=== PATIENT | female | born 1965 | race Hispanic/Latino ===

== ENCOUNTER 2016-09-10 08:43 | Emergency (ER) | payer SELFPAY ==
[2016-09-10 09:06] VITALS: BP 132/72
--- NOTE | 2016-09-10 10:13 | XRay Report ---
Chest 2 views: Compared to 04/30/14. History: Cough/Rib pain. Findings: Normal cardiomediastinal silhouette. Trachea is midline. No consolidation, pneumothorax or pleural effusion. Impression: No acute cardiopulmonary findings.
[2016-09-10] MEDS ORDERED: TESSALON PERLES PO ONE (11:28)
[2016-09-10] MEDS ORDERED: DUONEB 0.5 MG-3 MG/3 ML SOLN IH ONE (11:28)
--- NOTE | 2016-09-10 11:34 | Emergency Department Report ---
ED General Adult HPI - General Chief complaint: Upper Respiratory Infection Stated complaint: SOB/COUGHING BLOODY MUCUS Time Seen by Provider: 09/10/16 11:03 Source: patient Mode of arrival: Ambulatory Limitations: No Limitations - History of Present Illness Initial comments: PT states she a hx of bronchitis and over 20 years of tobacco abuse. PT states she has had productive cough x 3 weeks. PT states she is bringing up foul tasting yellow mucus. PT states she was sent home from work today. PT states she had one episode of coughing up blood speckled sputum. PT states she works at [employer] and she was told that she can not be coughing around food. PT states she was seen by her charcoal unloader on Thursday and told everything was good with her heart. Complaint: bronchitis Onset/Timin -: Gradual, week(s) Location: chest Consistency: constant Improves with: none Worsens with: other (pt states when she takes a deep breath, she will start to cough ) Associated Symptoms: denies: chest pain, fever/chills, nausea/vomiting - Related Data Previous Rx's Medication Instructions Recorded Last Taken Type Aspirin EC [Aspirin Enteric Coated 325 mg PO QDAY #30 tablet 03/21/14 04/30/14 Rx TAB] Carvedilol [Coreg] 3.125 mg PO BID #60 tablet 03/21/14 04/30/14 Rx Clopidogrel [Plavix] 75 mg PO QDAY #30 tablet 03/21/14 04/30/14 Rx Lisinopril [Zestril TAB] 2.5 mg PO QDAY #30 tablet 03/21/14 04/30/14 Rx Simvastatin 20 mg PO QHS #30 tablet 03/21/14 04/30/14 Rx Albuterol Sulfate [Ventolin HFA] 2 puff IH Q4H PRN #1 hfa.aer.ad 09/10/16 Unknown Rx Azithromycin [Zithromax] 250 mg PO DAILY #6 tablet 09/10/16 Unknown Rx Benzonatate [Tessalon Perles] 100 mg PO Q8HR PRN #12 capsule 09/10/16 Unknown Rx Allergies Allergy/AdvReac Type Severity Reaction Status Date / Time codeine Allergy Rash Verified 09/10/16 08:59 ED Review of Systems ROS: Stated complaint: SOB/COUGHING BLOODY MUCUS Other details as noted in HPI Comment: All other systems reviewed and negative Constitutional: denies: chills, fever ENT: throat pain, congestion Respiratory: cough, wheezing, other (pt states she hears rattling in her chest ) Gastrointestinal: denies: abdominal pain, nausea, vomiting Musculoskeletal: back pain ED Past Medical Hx - Past Medical History Hx Hypertension: Yes Hx Heart Attack/AMI: Yes (admitted for STEMI) Hx Congestive Heart Failure: No Hx Diabetes: No Hx Deep Vein Thrombosis: No Hx Pulmonary Embolism: No Hx Renal Disease: No Hx Kidney Stones: No Hx Psychiatric Treatment: Yes (ANXIETY) Hx Asthma: No Hx COPD: No Hx Tuberculosis: No Hx HIV: No Additional medical history: CAD - Surgical History Hx Coronary Stent: Yes Hx Pacemaker: No Hx Internal Defibrillator: No Additional Surgical History: TUBAL LIGATION - Social History Smoking Status: Former Smoker (over 20 years) Substance Use Type: None - Medications Home Medications: Home Medications Medication Instructions Recorded Confirmed Last Taken Type Aspirin EC [Aspirin Enteric Coated 325 mg PO QDAY #30 tablet 03/21/14 04/30/14 04/30/14 Rx TAB] Carvedilol [Coreg] 3.125 mg PO BID #60 tablet 03/21/14 04/30/14 04/30/14 Rx Clopidogrel [Plavix] 75 mg PO QDAY #30 tablet 03/21/14 04/30/14 04/30/14 Rx Lisinopril [Zestril TAB] 2.5 mg PO QDAY #30 tablet 03/21/14 04/30/14 04/30/14 Rx Simvastatin 20 mg PO QHS #30 tablet 03/21/14 04/30/14 04/30/14 Rx Albuterol Sulfate [Ventolin HFA] 2 puff IH Q4H PRN #1 hfa.aer.ad 09/10/16 Unknown Rx Azithromycin [Zithromax] 250 mg PO DAILY #6 tablet 09/10/16 Unknown Rx Benzonatate [Tessalon Perles] 100 mg PO Q8HR PRN #12 capsule 09/10/16 Unknown Rx ED Physical Exam - General Limitations: No Limitations General appearance: alert, in no apparent distress - Head Head exam: Present: atraumatic, normocephalic, normal inspection, other ( frontal sinus tenderness ) - Eye Eye exam: Present: normal appearance, EOMI. Absent: conjunctival injection - ENT ENT exam: Present: normal exam, normal orophraynx, mucous membranes moist, TM's normal bilaterally, normal external ear exam - Neck Neck exam: Present: normal inspection, full ROM. Absent: lymphadenopathy - Respiratory Respiratory exam: Present: wheezes, decreased breath sounds. Absent: respiratory distress, rhonchi, stridor - Expanded Respiratory Exam Expanded Location: Wheezes: Left, Lower, Decreased Breath Sounds: Right, Lower - Cardiovascular Cardiovascular Exam: Present: regular rate, normal rhythm - GI/Abdominal GI/Abdominal exam: Present: soft. Absent: tenderness - Extremities Exam Extremities exam: Present: normal inspection, full ROM - Back Exam Back exam: Present: normal inspection, full ROM. Absent: tenderness, CVA tenderness (R), CVA tenderness (L) - Neurological Exam Neurological exam: Present: alert, oriented X3, normal gait - Psychiatric Psychiatric exam: Present: normal affect, normal mood - Skin Skin exam: Present: warm, dry, intact, normal color ED Course Vital Signs 09/10/16 09:02 Temperature 98.3 F Pulse Rate 56 L Respiratory 18 Rate Blood Pressure 132/72 O2 Sat by Pulse 98 Oximetry - Reevaluation(s) Reevaluation #1: 09/10/16 11:37 PT aware of XR results. PT aware of plan of care. PT has no questions at this time. Reevaluation #2: 09/10/16 12:50 PT states her cough has decreased. PT's lungs cta at this time. PT aware of dx and treatment plan. PT has no questions at this time. - Pulse Oximetry Interpretation Digit-Finger Initial Pulse Oximetry Readin Actions Taken: none ED Medical Decision Making - Radiology Data Radiology results: report reviewed CXR - NAP - Differential Diagnosis pna, bronchitis, sinusitis, Critical Care Time: No Critical care attestation.: If time is entered above; I have spent that time in minutes in the direct care of this critically ill patient, excluding procedure time. ED Disposition Clinical Impression: Complicated acute bronchitis Frontal sinusitis Qualifiers: Chronicity: acute Recurrence: not specified as recurrent Qualified Code(s): J01.10 - Acute frontal sinusitis, unspecified Disposition: - TO HOME OR SELFCARE Is pt being admited?: No Does the pt Need Aspirin: No Condition: Stable Instructions: Sinusitis (ED), Acute Bronchitis (ED) Additional Instructions: Return to ED if worsening or concerns Prescriptions: Albuterol Sulfate [Ventolin HFA] 2 puff IH Q4H PRN #1 hfa.aer.ad PRN Reason: Shortness Of Breath Azithromycin [Zithromax] 250 mg PO DAILY #6 tablet Benzonatate [Tessalon Perles] 100 mg PO Q8HR PRN #12 capsule PRN Reason: Cough Referrals: [facility] [Outside] - 3-5 Days [facility] [Outside] - 3-5 Days PRIMARY CAREMD [Primary Care Provider] - 3-5 Days EMILY BACA MD [Staff Physician] - 3-5 Days Forms: Work/School Release Form(ED)
== END 2016-09-10 12:58 | disposition home or self-care (01) ==
LOC: ED 08:43
DX: J20.9 Acute bronchitis, unspecified (principal); J01.10 Acute frontal sinusitis, unspecified; I10 Essential (primary) hypertension; I25.2 Old myocardial infarction; Z87.891 Personal history of nicotine dependence
CPT/HCPCS: 71020; 99283

== ENCOUNTER 2017-01-07 13:36 | Inpatient (IN) | payer OTHER ==
[2017-01-07 14:26] LABS: Basophils % (Auto) 1.3 % (0.0-1.8); Eosinophils % (Auto) 1.2 % (0.0-4.3); Hematocrit 42.6 % (30.3-42.9); Hemoglobin 14.1 gm/dl (10.1-14.3); Mean Corpuscular HGB Conc 33 % (30-34); Mean Corpuscular Hemoglobin 31 pg (28-32); Mean Corpuscular Volume 92 fl (79-97); Platelet Count 353 K/mm3 (140-440); Red Blood Count 4.63 M/mm3 (3.65-5.03); Red Cell Distribution Width 13.8 % (13.2-15.2); White Blood Count 14.2 K/mm3 (4.5-11.0)
[2017-01-07 14:35] LABS: INR 0.94 (0.87-1.13); Partial Thromboplastin Time 26.7 Sec. (24.2-36.6)
[2017-01-07 14:38] LABS: Anion Gap 17 mmol/L; BUN/Creatinine Ratio 28; Blood Urea Nitrogen 14 mg/dL (7-17); Calcium 10.3 mg/dL (8.4-10.2); Carbon Dioxide 27 mmol/L (22-30); Chloride 102.5 mmol/L (98-107); Glucose 92 mg/dL (65-100); Potassium 4.8 mmol/L (3.6-5.0); Sodium 142 mmol/L (137-145)
[2017-01-08] MEDS ORDERED: MAGNESIUM SULFATE 2GM/50ML 2 GM/50 ML BAG IV ONE (03:08)
[2017-01-08] MEDS ORDERED: BABY ASPIRIN PO ONE (03:08)
[2017-01-08] MEDS ORDERED: ATROVENT IH ONE ×2 (03:08→04:44)
[2017-01-08] MEDS ORDERED: NITROSTAT SL PRN (03:08)
[2017-01-08] MEDS ORDERED: MORPHINE IV ONE (03:08)
--- NOTE | 2017-01-08 03:10 | Emergency Department Report ---
ED Chest Pain HPI - General Chief Complaint: Chest Pain Stated Complaint: CHEST PAIN Time Seen by Provider: 01/08/17 02:56 Source: patient, RN notes reviewed, old records reviewed Mode of arrival: Ambulatory Limitations: No Limitations - History of Present Illness Initial Comments: This is a 51-year-old female, the patient is previously unknown to this provider. Her dietitian helper is Dr. Roberson The patient has a past medical history of heart disease, stent, STEMI, tobacco use, anxiety Patient is sent to the ER for evaluation of chest pain. The chest pain is central, it radiates to the back, it is associated with shortness of breath. Patient endorses compliance with her medications, there is no leg pain, there is no leg swelling, no recent hospital admissions, no history of DVT or pulmonary in loss, no hematemesis or bright red blood per rectum. In the emergency room, he was found to be wheezing, and is treated empirically with Atrovent, steroids and magnesium. Her EKGs were nonspecific, unchanged from prior, but not morphologically consistent with STEMI. X-ray of the chest was negative, troponin was negative 3. Patient remained hemodynamically stable in the ER. Given her nonspecific EKG changes and chest pain, patient was admitted to the hospital under the hospitalist service, Dr. Mcguire for acute coronary syndrome risk stratification. Wheezing is most likely secondary to undiagnosed emphysema or bronchitis or COPD , albuterol was held secondary to concern for acute coronary syndrome. MD Complaint: chest pain -: Gradual Onset: during rest, during exertion Pain Location: substernal, left chest Pain Radiation: back Severity scale (0 -10): 9 Quality: tightness, aching Consistency: intermittent Improves With: rest Worsens With: movement Context: other (patient reports her chest pain feels like her prior myocardial infarction) Aspirin use within the Past 7 Days: (0) No - Related Data On Oral Contraceptives: No Previous Rx's Medication Instructions Recorded Last Taken Type Aspirin EC [Aspirin Enteric Coated 325 mg PO QDAY #30 tablet 03/21/14 04/30/14 Rx TAB] Carvedilol [Coreg] 3.125 mg PO BID #60 tablet 03/21/14 04/30/14 Rx Clopidogrel [Plavix] 75 mg PO QDAY #30 tablet 03/21/14 04/30/14 Rx Lisinopril [Zestril TAB] 2.5 mg PO QDAY #30 tablet 03/21/14 04/30/14 Rx Simvastatin 20 mg PO QHS #30 tablet 03/21/14 04/30/14 Rx Albuterol Sulfate [Ventolin HFA] 2 puff IH Q4H PRN #1 hfa.aer.ad 09/10/16 Unknown Rx Azithromycin [Zithromax] 250 mg PO DAILY #6 tablet 09/10/16 Unknown Rx Benzonatate [Tessalon Perles] 100 mg PO Q8HR PRN #12 capsule 09/10/16 Unknown Rx Allergies Allergy/AdvReac Type Severity Reaction Status Date / Time codeine Allergy Rash Verified 09/10/16 08:59 Heart Score - HEART Score History: Highly suspicious EKG: Non-specific Age: 45-65 Risk factors: > 3 risk factors or hx of atherosclerotic disease Troponin: < normal limit HEART Score: 6 - Critical Actions Critical Actions: 4-6 pts:12-16.6% risk of adverse cardiac event. Should be admitted ED Review of Systems ROS: Stated complaint: CHEST PAIN Other details as noted in HPI Constitutional: malaise, weakness Eyes: denies: vision change ENT: denies: congestion Respiratory: shortness of breath, wheezing Cardiovascular: chest pain, dyspnea on exertion Gastrointestinal: denies: abdominal pain, hematemesis, melena, other Genitourinary: denies: dysuria Musculoskeletal: back pain, arthralgia Skin: denies: lesions Neurological: weakness Psychiatric: anxiety ED Past Medical Hx - Past Medical History Previous Medical History?: Yes Hx Hypertension: Yes Hx Heart Attack/AMI: Yes (admitted for STEMI) Hx Congestive Heart Failure: No Hx Diabetes: No Hx Deep Vein Thrombosis: No Hx Pulmonary Embolism: No Hx Renal Disease: No Hx Kidney Stones: No Hx Psychiatric Treatment: Yes (ANXIETY) Hx Asthma: No Hx COPD: No Hx Tuberculosis: No Hx HIV: No Additional medical history: CAD - Surgical History Past Surgical History?: Yes Hx Coronary Stent: Yes Hx Pacemaker: No Hx Internal Defibrillator: No Additional Surgical History: TUBAL LIGATION - Social History Smoking Status: Former Smoker Substance Use Type: Non Opiate Pain, Prescribed - Medications Home Medications: Home Medications Medication Instructions Recorded Confirmed Last Taken Type Aspirin EC [Aspirin Enteric Coated 325 mg PO QDAY #30 tablet 03/21/14 04/30/14 04/30/14 Rx TAB] Carvedilol [Coreg] 3.125 mg PO BID #60 tablet 03/21/14 04/30/14 04/30/14 Rx Clopidogrel [Plavix] 75 mg PO QDAY #30 tablet 03/21/14 04/30/14 04/30/14 Rx Lisinopril [Zestril TAB] 2.5 mg PO QDAY #30 tablet 03/21/14 04/30/14 04/30/14 Rx Simvastatin 20 mg PO QHS #30 tablet 03/21/14 04/30/14 04/30/14 Rx Albuterol Sulfate [Ventolin HFA] 2 puff IH Q4H PRN #1 hfa.aer.ad 09/10/16 Unknown Rx Azithromycin [Zithromax] 250 mg PO DAILY #6 tablet 09/10/16 Unknown Rx Benzonatate [Tessalon Perles] 100 mg PO Q8HR PRN #12 capsule 09/10/16 Unknown Rx ED Physical Exam - General Limitations: No Limitations General appearance: alert, anxious - Head Head exam: Present: atraumatic, normocephalic - Eye Eye exam: Present: normal appearance, EOMI. Absent: nystagmus - ENT ENT exam: Present: normal exam, normal orophraynx, mucous membranes moist, normal external ear exam - Neck Neck exam: Present: normal inspection, full ROM. Absent: tenderness, meningismus - Respiratory Respiratory exam: Present: wheezes. Absent: respiratory distress - Cardiovascular Cardiovascular Exam: Present: normal rhythm, bradycardia, normal heart sounds. Absent: systolic murmur, diastolic murmur, rubs, gallop - GI/Abdominal GI/Abdominal exam: Present: soft, normal bowel sounds. Absent: distended, guarding, rebound, rigid, pulsatile mass - Extremities Exam Extremities exam: Present: normal inspection, full ROM, normal capillary refill. Absent: pedal edema, joint swelling, calf tenderness - Back Exam Back exam: Present: normal inspection, full ROM. Absent: tenderness, CVA tenderness (R), CVA tenderness (L), muscle spasm, paraspinal tenderness, vertebral tenderness - Neurological Exam Neurological exam: Present: alert, oriented X3, normal gait, other (Extraocular movements intact. Tongue midline. No facial droop. Facial sensation intact to light touch in the V1, V2, V3 distribution bilaterally. 5 and 5 strength in 4 extremities.. Sensation is intact to light touch in 4 extremities.). Absent : motor sensory deficit - Psychiatric Psychiatric exam: Present: normal affect, normal mood - Skin Skin exam: Present: warm, dry, intact, normal color. Absent: rash ED Course Vital Signs 01/07/17 01/07/17 01/08/17 14:00 23:09 01:12 Temperature 97.8 F 97.9 F Pulse Rate 56 L 58 L 53 L Pulse Rate [ Bilateral Throughout] Respiratory 18 18 22 Rate Respiratory Rate [Bilateral Throughout] Blood Pressure 127/57 147/71 Blood Pressure [Left] O2 Sat by Pulse 95 96 99 Oximetry 01/08/17 01/08/17 01/08/17 01:14 01:16 01:30 Temperature 97.8 F Pulse Rate 60 58 L 54 L Pulse Rate [ Bilateral Throughout] Respiratory 18 23 22 Rate Respiratory Rate [Bilateral Throughout] Blood Pressure 130/52 129/60 Blood Pressure 130/52 [Left] O2 Sat by Pulse 99 99 97 Oximetry 01/08/17 01/08/17 01/08/17 01:46 02:00 02:16 Temperature Pulse Rate 53 L 55 L 56 L Pulse Rate [ Bilateral Throughout] Respiratory 16 21 18 Rate Respiratory Rate [Bilateral Throughout] Blood Pressure 137/81 124/58 129/68 Blood Pressure [Left] O2 Sat by Pulse 98 99 97 Oximetry 01/08/17 01/08/17 01/08/17 02:30 02:45 03:00 Temperature Pulse Rate 55 L 57 L 66 Pulse Rate [ Bilateral Throughout] Respiratory 19 23 21 Rate Respiratory Rate [Bilateral Throughout] Blood Pressure 118/50 113/53 113/53 Blood Pressure [Left] O2 Sat by Pulse 97 96 98 Oximetry 01/08/17 01/08/17 01/08/17 03:35 03:38 03:45 Temperature Pulse Rate 65 Pulse Rate [ Bilateral Throughout] Respiratory 18 16 Rate Respiratory Rate [Bilateral Throughout] Blood Pressure 117/57 127/78 Blood Pressure [Left] O2 Sat by Pulse 99 99 96 Oximetry 01/08/17 01/08/17 01/08/17 04:00 04:15 04:30 Temperature Pulse Rate 58 L 56 L Pulse Rate [ Bilateral Throughout] Respiratory 18 21 Rate Respiratory Rate [Bilateral Throughout] Blood Pressure 107/64 110/55 110/54 Blood Pressure [Left] O2 Sat by Pulse 96 95 Oximetry 01/08/17 04:48 Temperature Pulse Rate Pulse Rate [ 62 Bilateral Throughout] Respiratory Rate Respiratory 18 Rate [Bilateral Throughout] Blood Pressure Blood Pressure [Left] O2 Sat by Pulse Oximetry SAVITA score - Savita Score Age > 65: (0) No Aspirin use within the Past 7 Days: (0) No 3 or more CAD Risk Factors: (1) Yes 2 or more Angina events in past 24 hrs: (1) Yes Known CAD with more than 50% Stenosis: (1) Yes Elevated Cardiac Markers: (0) No ST Deviation Greater than 0.5mm: (1) Yes SAVITA Score: 4 ED Medical Decision Making - Lab Data Result diagrams: 01/07/17 14:07 01/07/17 14:07 Vital Signs 01/07/17 01/07/17 01/08/17 14:00 23:09 01:12 Temperature 97.8 F 97.9 F Pulse Rate 56 L 58 L 53 L Respiratory 18 18 22 Rate Blood Pressure 127/57 147/71 Blood Pressure [Left] O2 Sat by Pulse 95 96 99 Oximetry 01/08/17 01/08/17 01/08/17 01:14 01:16 01:30 Temperature 97.8 F Pulse Rate 60 58 L 54 L Respiratory 18 23 22 Rate Blood Pressure 130/52 129/60 Blood Pressure 130/52 [Left] O2 Sat by Pulse 99 99 97 Oximetry 01/08/17 01/08/17 01/08/17 01:46 02:00 02:16 Temperature Pulse Rate 53 L 55 L 56 L Respiratory 16 21 18 Rate Blood Pressure 137/81 124/58 129/68 Blood Pressure [Left] O2 Sat by Pulse 98 99 97 Oximetry 01/08/17 01/08/17 01/08/17 02:30 02:45 03:00 Temperature Pulse Rate 55 L 57 L 66 Respiratory 19 23 21 Rate Blood Pressure 118/50 113/53 113/53 Blood Pressure [Left] O2 Sat by Pulse 97 96 98 Oximetry 01/08/17 01/08/17 01/08/17 03:35 03:38 03:45 Temperature Pulse Rate 65 Respiratory 18 16 Rate Blood Pressure 117/57 127/78 Blood Pressure [Left] O2 Sat by Pulse 99 99 96 Oximetry 01/08/17 01/08/17 01/08/17 04:00 04:15 04:30 Temperature Pulse Rate 58 L 56 L Respiratory 18 21 Rate Blood Pressure 107/64 110/55 110/54 Blood Pressure [Left] O2 Sat by Pulse 96 95 Oximetry Lab Results 01/07/17 01/07/17 01/07/17 Range/Units 14:07 14:07 14:07 WBC 14.2 H (4.5-11.0) K/mm3 RBC 4.63 (3.65-5.03) M/mm3 Hgb 14.1 (10.1-14.3) gm/dl Hct 42.6 (30.3-42.9) % MCV 92 (79-97) fl MCH 31 (28-32) pg MCHC 33 (30-34) % RDW 13.8 (13.2-15.2) % Plt Count 353 (140-440) K/mm3 Lymph % (Auto) 18.9 (13.4-35.0) % [place] % (Auto) 6.8 (0.0-7.3) % Eos % (Auto) 1.2 (0.0-4.3) % Baso % (Auto) 1.3 (0.0-1.8) % Lymph # 2.7 (1.2-5.4) K/mm3 [place] # 1.0 H (0.0-0.8) K/mm3 Eos # 0.2 (0.0-0.4) K/mm3 Baso # 0.2 H (0.0-0.1) K/mm3 Seg Neutrophils % 71.8 H (40.0-70.0) % Seg Neutrophils # 10.2 H (1.8-7.7) K/mm3 PT 13.1 (12.2-14.9) Sec. INR 0.94 (0.87-1.13) APTT 26.7 (24.2-36.6) Sec. Sodium 142 (137-145) mmol/L Potassium 4.8 (3.6-5.0) mmol/L Chloride 102.5 (98-107) mmol/L Carbon Dioxide 27 (22-30) mmol/L Anion Gap 17 mmol/L BUN 14 (7-17) mg/dL Creatinine 0.5 L (0.7-1.2) mg/dL Estimated GFR > 60 ml/min BUN/Creatinine Ratio 28 % Glucose 92 (65-100) mg/dL Calcium 10.3 H (8.4-10.2) mg/dL Troponin T < 0.010 (0.00-0.029) ng/mL 01/07/17 01/07/17 Range/Units 17:08 20:00 WBC (4.5-11.0) K/mm3 RBC (3.65-5.03) M/mm3 Hgb (10.1-14.3) gm/dl Hct (30.3-42.9) % MCV (79-97) fl MCH (28-32) pg MCHC (30-34) % RDW (13.2-15.2) % Plt Count (140-440) K/mm3 Lymph % (Auto) (13.4-35.0) % [place] % (Auto) (0.0-7.3) % Eos % (Auto) (0.0-4.3) % Baso % (Auto) (0.0-1.8) % Lymph # (1.2-5.4) K/mm3 [place] # (0.0-0.8) K/mm3 Eos # (0.0-0.4) K/mm3 Baso # (0.0-0.1) K/mm3 Seg Neutrophils % (40.0-70.0) % Seg Neutrophils # (1.8-7.7) K/mm3 PT (12.2-14.9) Sec. INR (0.87-1.13) APTT (24.2-36.6) Sec. Sodium (137-145) mmol/L Potassium (3.6-5.0) mmol/L Chloride (98-107) mmol/L Carbon Dioxide (22-30) mmol/L Anion Gap mmol/L BUN (7-17) mg/dL Creatinine (0.7-1.2) mg/dL Estimated GFR ml/min BUN/Creatinine Ratio % Glucose (65-100) mg/dL Calcium (8.4-10.2) mg/dL Troponin T < 0.010 < 0.010 (0.00-0.029) ng/mL - EKG Data -: EKG Interpreted by Nd - EKG Data 01/08/17 04:45 EKG #1 demonstrates normal sinus, normal intervals, low voltage in this anteroseptal leads, not morphologically consistent with STEMI. EKG #2 is unchanged from first EKG EKG #3 appears unchanged compared to prior EKGs. EKG today demonstrated a pseudo-normalized T-wave in V3, which is new when compared to prior EKG from 2015. - Radiology Data Radiology results: image reviewed interpreted by me: X-ray the chest is negative for acute disease - Medical Decision Making Differential diagnosis: GERD, gastritis, acute coronary syndrome, unstable angina, reactive airway disease, COPD, bronchitis Chest the Plan: 51-year-old female with extensive cardiac history, high risk through multiple risk stratification tools, no pulmonary embolus or DVT risk factors, low risk by well's criteria, requires admission for aggressive ACS risk stratification. Critical care attestation.: If time is entered above; I have spent that time in minutes in the direct care of this critically ill patient, excluding procedure time. ED Disposition Clinical Impression: Chest pain, Dyspnea Disposition: OP ADMIT IP TO THIS HOSP Is pt being admited?: Yes Condition: Good
[2017-01-08] MEDS ORDERED: ZOFRAN IV PRN (03:37)
[2017-01-08] MEDS ORDERED: XOPENEX IH PRN (03:50)
[2017-01-08] MEDS ORDERED: TESSALON PERLES PO PRN (03:52)
[2017-01-08] MEDS ORDERED: MORPHINE IV PRN (04:09)
[2017-01-08] MEDS ORDERED: ZOFRAN ONE (04:25)
[2017-01-08] MEDS: NITRO-BID 2% TP SCH ×4 (04:30→19:23)
--- NOTE | 2017-01-08 05:03 | History and Physical Report ---
CHIEF COMPLAINT: Chest pain. HISTORY OF PRESENT ILLNESS: The patient is a 51-year-old female who states she has been having chest pain going on for 3 days. The patient described the pain as pressure-like sensation in the retrosternal area. Pain does not radiate to the upper extremity or neck and was associated with shortness of breath, diaphoresis, nausea, but no vomiting. The patient was directed by freelance web designer to come to the Emergency Room. There was no history of fever or chills. No history of cough. PAST MEDICAL HISTORY: Pertinent for coronary artery disease. Also, the patient has past medical history of hypertension and also anxiety disorder. PAST SURGICAL HISTORY: Pertinent for stent placement, tubal ligation. FAMILY HISTORY: Noncontributory. SOCIAL HISTORY: The patient used to be a former smoker. Does not smoke currently, does not drink alcohol and does not use illicit drugs. MEDICATIONS: The patient is on aspirin 325 mg by mouth daily, Coreg 3.125 mg p.o. b.i.d., clopidogrel 75 mg p.o. daily, lisinopril (Zestril) 2.5 mg p.o. daily, simvastatin 20 mg p.o. at bedtime, albuterol sulfate 2 puffs inhalation q. p.r.n. shortness of breath, Zithromax 250 mg by mouth daily, Tessalon Perles or benzonatate 100 mg p.o. q. 8 hours p.r.n. ALLERGIES: THE PATIENT IS ALLERGIC TO CODEINE. REVIEW OF SYSTEMS: CONSTITUTIONAL: There is no fever, no chills. Diaphoresis present. HEENT: There is no headache or sore throat. CARDIOVASCULAR: Chest pain present. No orthopnea. RESPIRATORY: Shortness of breath present. Wheezing present. No cough. GASTROINTESTINAL: There is nausea but no vomiting, no abdominal pain, diarrhea or constipation. NEUROLOGICAL: There is no numbness, no dizziness, no altered mental status. MUSCULOSKELETAL: There is no joint pain or swelling. DERMATOLOGICAL: There is no skin rash or itching. GENITOURINARY: There is no dysuria, hematuria, or flank pain. Rest of system review is normal. PHYSICAL EXAMINATION: GENERAL: At the time of exam, the patient was found to be alert, oriented x 3 and not in acute distress. VITAL SIGNS: Shows temperature of 97.8, pulse of 60, respirations 18, blood pressure 130/52, O2 sat of 99% on room air. HEENT: Showed pupils to be equal, round, reactive to light and accommodating. Extraocular muscles are intact. NECK: Supple with no JVD or carotid bruit. CARDIOVASCULAR SYSTEM: Show first and second heart sounds with no gallops or murmurs. RESPIRATORY: Showed good air entry on both sides of the lung with no abnormal breath sounds. GASTROINTESTINAL SYSTEM: Show abdomen to be full, soft, nontender with no organomegaly or rigidity. NEUROLOGICAL: Show no focal deficit. MUSCULOSKELETAL: Show no joint swelling or tenderness. DERMATOLOGICAL SYSTEM: Show no skin rash. GENITOURINARY: Show no costovertebral angle tenderness. PERTINENT LABORATORY DATA AND IMAGING STUDIES: The patient had CBC done that shows elevated white count of 14,200 with normal hemoglobin and normal hematocrit with a CBC differential being unremarkable except for elevated segmented neutrophils of 71.8%. Coagulation studies came back normal. Chemistry was unremarkable. The patient's cardiac enzyme troponin are showing three normal levels already. IMAGING STUDIES: No imaging studies were done by Emergency Room at this time. DIAGNOSIS: Chest pain. PLAN: The patient will be admitted to medical floor on telemetry and the patient will be n.p.o. and will have Lexiscan stress test in the morning. The patient will have Cardiology consult with Dr. Roberson, who referred the patient to the Emergency Room. The patient will be on nitro paste 1 inch to anterior chest wall q. 6 hours as well as sublingual nitroglycerin 0.4 mg q. 5 minutes as needed for chest pain. The patient will be on morphine 2 mg q. 5 minutes IV p.r.n. chest pain and will be on IV Zofran 4 mg q. 6 hours for nausea and vomiting. The patient will also be on Tylenol 650 mg by mouth every 6 hours as needed for fever and headache and will be on Xopenex nebulizer every 6 hours as needed for wheezing. The patient will be on oxygen by nasal cannula at 2 liter per minute and will be on aspirin 325 mg by mouth daily as well as heparin 5000 units subQ q. 12 hours for DVT prophylaxis, the patient's home medications will be reconciled and started as shown in the medication reconciliation section. JOB# [id number] OCN/NTS
--- NOTE | 2017-01-08 07:23 | XRay Report ---
ROUTINE CHEST, TWO VIEWS: HISTORY: chest pain. The trachea, heart, mediastinal contour, lung stevenson and bony thorax are unremarkable. IMPRESSION: Unremarkable chest x-ray. No significant change since 09/10/16.
[2017-01-08] MEDS ORDERED: LEXISCAN IV ONE ×2 (08:56→08:57)
[2017-01-08] MEDS ORDERED: ZITHROMAX PO SCH (10:00)
[2017-01-08] MEDS: ASPIRIN PO SCH (12:08)
[2017-01-08] MEDS: PLAVIX PO SCH (12:09)
[2017-01-08] MEDS: COREG PO SCH ×2 (12:09→21:22)
[2017-01-08] MEDS: HEPARIN SUB-Q SCH ×2 (12:10→21:21)
[2017-01-08] MEDS: ROCEPHIN/NS 1 GM/50 ML 1 GM/50 ML BAG IV SCH (12:40)
[2017-01-08] MEDS: DUONEB *Not for PRN Use IH SCH ×3 (13:25→20:21)
--- NOTE | 2017-01-08 14:04 | Consultation ---
History of Present Illness Consult date: 01/08/17 Requesting physician: ABDOULAYE DEAN Consult reason: chest pain History of present illness: The pt is a 51 yo female with a past medical history significant for CAD, s/p STEMI with PCI of prox and mid LAD 03/19/2014, CMP with now normalized EF, HTN, HLP, former tobacco use (quit 02/2014), anxiety. She is followed in our office by Dr. Roberson. 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 She describes her chest pain as a nonexertional intermittent midsternal squeezing pain which which sometimes radiates into her back. The pain has no clear aggravating or alleviating factors. The pain was associated with some nausea and diaphoresis. She denies any SOB, palpitations, vomiting, dizziness or syncope. EKG following admission showed SR with nonspecific abnormalities; troponins negative for AMI x 3 sets. She currently appears comfortable. Lexiscan MPI stress test has been ordered per primary and pt is evaluated in stress lab. Of note, the pt is s/p primary marshal pci of prox and mid lad 03/19/14 for stemi which presented with similar pain. the lv ef was 35-40%. non obs cad was noted in the rca and cx. Patient had the stress thallium done on 10/22/2015. She exercised for 5 minutes and 14 seconds initially and subsequently Lexiscan thallium was performed. Stress test showed small fixed anterior wall defect felt to be artifact and normal global left ventricular systolic function with no significant wall motion abnormalities noted. Ejection fraction 61%. Echo done 10/22/2015 showed mild LVH, overall normal LV systolic function. Past History Past Medical History: CAD, hypertension, hyperlipidemia Past Surgical History: Other (PCI) Medications and Allergies Allergies Allergy/AdvReac Type Severity Reaction Status Date / Time codeine Allergy Rash Verified 09/10/16 08:59 Home Medications Medication Instructions Recorded Confirmed Last Taken Type Aspirin EC [Aspirin Enteric Coated 325 mg PO QDAY #30 tablet 03/21/14 01/08/17 1 Day Ago Rx TAB] Carvedilol [Coreg] 3.125 mg PO BID #60 tablet 03/21/14 01/08/17 1 Day Ago Rx Clopidogrel [Plavix] 75 mg PO QDAY #30 tablet 03/21/14 01/08/17 1 Day Ago Rx Lisinopril [Zestril TAB] 2.5 mg PO QDAY #30 tablet 03/21/14 01/08/17 1 Day Ago Rx Simvastatin 20 mg PO QHS #30 tablet 03/21/14 01/08/17 1 Day Ago Rx Albuterol Sulfate [Ventolin HFA] 2 puff IH Q4H PRN #1 hfa.aer.ad 09/10/16 1 Day Ago Rx Active Meds: Active Medications Acetaminophen (Tylenol) 650 mg PO Q4H PRN PRN Reason: For Pain/Fever/Headache Albuterol/Ipratropium (Duoneb *Not For Prn Use*) 1 ampul IH QIDRT [facility] Last Admin: 01/08/17 13:25 Dose: 1 ampul Aspirin (Aspirin) 325 mg PO QDAY [facility] Benzonatate (Tessalon Perles) 100 mg PO Q8H PRN PRN Reason: Cough Carvedilol (Coreg) 3.125 mg PO BID [facility] Clopidogrel Bisulfate (Plavix) 75 mg PO QDAY [facility] Heparin Sodium (Porcine) (Heparin) 5,000 unit SUB-Q Q12HR [facility] Ceftriaxone Sodium (Rocephin/Ns 1 Gm/50 Ml) 1 gm in 50 mls @ 100 mls/hr IV Q24HR [facility] PRN Reason: Protocol Levalbuterol HCl (Xopenex) 1.25 mg IH Q6HRT PRN PRN Reason: Wheezing Lisinopril (Zestril) 2.5 mg PO QDAY [facility] Methylprednisolone Sodium Succinate (Solu-Medrol) 80 mg IV Q8HR [facility] Morphine Sulfate (Morphine) 2 mg IV Q5MIN PRN PRN Reason: Chest Pain Nitroglycerin (Nitrostat) 0.4 mg SL .Q5MIN PRN PRN Reason: Chest Pain Nitroglycerin (Nitro-Bid 2%) 1 inch TP QIDNTG [facility] PRN Reason: Protocol Last Admin: 01/08/17 04:30 Dose: Not Given Ondansetron HCl (Zofran) 4 mg IV Q6H PRN PRN Reason: Nausea And Vomiting Simvastatin (Zocor) 20 mg PO QHS [facility] Review of Systems Constitutional: sweats, no weight loss, no weight gain, no fever, no chills Ears, nose, mouth and throat: no ear pain, no nose pain, no sinus pressure, no sinus pain Cardiovascular: chest pain, no orthopnea, no palpitations, no rapid/irregular heart beat, no edema, no syncope, no lightheadedness, no shortness of breath, no dyspnea on exertion, no leg edema Respiratory: no cough, no shortness of breath, no dyspnea on exertion, no congestion, no wheezing, no pain on inspiration Gastrointestinal: nausea, no abdominal pain, no vomiting, no diarrhea, no constipation, no change in bowel habits Genitourinary Female: no pelvic pain, no flank pain, no dysuria, no urinary frequency, no urgency Musculoskeletal: no neck stiffness, no neck pain, no shooting arm pain, no arm numbness/tingling, no low back pain, no shooting leg pain, no leg numbness/ tingling, no redness of joints Integumentary: no rash, no pruritis, no redness, no sores, no wounds Neurological: no head injury, no paralysis, no weakness, no parathesias, no numbness, no tingling, no seizures, no syncope Psychiatric: anxiety Endocrine: no cold intolerance, no heat intolerance Hematologic/Lymphatic: no easy bruising, no easy bleeding, no lymphadenopathy Allergic/Immunologic: no urticaria, no wheezing, no persistent infections Physical Examination Vital Signs Temp Pulse Resp BP Pulse Ox 97.8 F 56 L 18 127/57 95 01/07/17 14:00 01/07/17 14:00 01/07/17 14:00 01/07/17 14:00 01/07/17 14:00 General appearance: no acute distress HEENT: Positive: PERRL, Normocephaly, Mucus Membranes Moist Neck: Positive: neck supple, trachea midline Cardiac: Positive: Reg Rate and Rhythm, S1/S2 Lungs: Positive: Normal Exam, clear to auscultation, Normal Breath Sounds Neuro: Positive: Grossly Intact, Cranial Nerve 2-12 Intact Abdomen: Positive: Unremarkable, Soft, Active Bowel Sounds. Negative: Tender Skin: Positive: Clear. Negative: Rash, Wound Musculoskeletal: No Fluid Collection, No Pain, Normal Range of Motion Extremities: Absent: edema Results 01/07/17 14:07 01/07/17 14:07 - Imaging and Cardiology Echo: report reviewed (10/22/2015 showed mild LVH, overall normal LV systolic function. ) Cardiac cath: report reviewed (s/p primary marshal pci of prox and mid lad 03/19/14 ) EKG: report reviewed, image reviewed EKG interpretations - Telemetry EKG Rhythm: Sinus Rhythm - EKG Sinus rhythms and dysrhythmias: sinus rhythm Repolarization changes or abnormalities: nonspecific abnormality, ST segment, and/or T wave Assessment and Plan Assessment: Chest pain - with both atypical and typical features; currently resolved; ECG with NAF; Candida negative for AMI x 3 sets CAD, s/p PCI Leukocytosis - CXR with NAF; pt afebrile HTN HLP Anxiety Plan: S/p lexiscan MPI stress test this AM which was negative for ischemia, EF 69%. Currently stable cardiac status. Cont present cardiac management. Pt may discharge home from cardiology standpoint. Recommend pt to follow up in our office with Dr. Roberson within 1-2 weeks of hospital discharge ([phone]). The patient has been seen in conjunction with Dr. Mandel who agrees with the assessment and plan of care.
[2017-01-08] MEDS: ZESTRIL PO SCH (14:06)
[2017-01-08] MEDS: TYLENOL PO PRN ×2 (15:40→21:22)
[2017-01-08] MEDS ORDERED: ZITHROMAX PO ONE (18:32)
[2017-01-08] MEDS: PULMICORT IH SCH (19:41)
[2017-01-08] MEDS: BROVANA NEBU IH SCH (19:41)
[2017-01-08] MEDS ORDERED: Fluarix Quad 2017-2018(36 MOS+) IM ONE (20:17)
[2017-01-08] MEDS: ZOLOFT PO SCH (21:23)
[2017-01-08] MEDS ORDERED: ZOCOR PO SCH (22:00)
--- NOTE | 2017-01-09 00:49 | Treadmill Report ---
MYOCARDIAL PERFUSION IMAGING STUDIES Resting images revealed heterogeneous radioisotope activity throughout the myocardium. On post-Lexiscan, the images revealed similar uptake. There was gastric uptake noted. On gated scan, there is no segmental motion abnormality noted. Ejection fraction was 69%. IMPRESSION: 1. This test is negative for ischemia. 2. Good left ventricular systolic function. JOB# [id number] HEAVEN/RACHEL
[2017-01-09] MEDS ORDERED: AMBIEN PO PRN (01:27)
[2017-01-09] MEDS: BROVANA NEBU IH SCH (07:21)
[2017-01-09] MEDS: PULMICORT IH SCH (07:21)
[2017-01-09] MEDS: DUONEB *Not for PRN Use IH SCH ×2 (07:22→13:17)
--- NOTE | 2017-01-09 09:59 | Discharge Summary ---
Providers - Providers Date of Admission: 01/08/17 03:34 Attending physician: MARIE WOODARD MD 01/08/17 06:35 Consult to Physician [CONS] Routine Consulting Provider: ALIZA VEGA Reason For Exam: CHEST PAIN Place consult to:: ALIZA VEGA Primary care physician: KAYLENE ROLDAN MD Hospitalization Condition: Good Hospital course: 51-year-old woman with past medical history of hypertension, anxiety disorder, COPD, CAD who presents with chest pain 3 days. She'll admitted to the hospital , chest x-ray did not show any acute findings, she went on to have nuclear stress associated negative for ischemia. She received cardiology consultation who agreed with the management. She did have wheezing on presentation, for which was treated with steroids and nebulizers and antibiotics for COPD exacerbation. Patient clinically improved and was discharged home Discharge diagnosis Chest pain due to COPD exacerbation COPD exacerbation Hypertension Coronary artery disease without angina Disposition: TO HOME OR SELFCARE Time spent for discharge: 33 minutes Core Measure Documentation - Palliative Care Palliative Care/ Comfort Measures: Not Applicable - Core Measures Any of the following diagnoses?: none Exam - Constitutional Vitals: Temp Pulse Resp BP Pulse Ox 98.7 F 70 18 114/71 92 01/09/17 04:52 01/09/17 04:52 01/09/17 04:52 01/09/17 04:52 01/09/17 04:52 General appearance: Present: no acute distress, well-nourished - EENT Eyes: Present: PERRL ENT: hearing intact, clear oral mucosa - Neck Neck: Present: supple, normal ROM - Respiratory Respiratory effort: normal Respiratory: bilateral: CTA - Cardiovascular Heart Sounds: Present: S1 & S2. Absent: rub, click - Extremities Extremities: pulses symmetrical, No edema Peripheral Pulses: within normal limits - Abdominal General gastrointestinal: Present: soft, non-tender, non-distended, normal bowel sounds Female genitourinary: Present: normal - Integumentary Integumentary: Present: clear, warm, dry - Musculoskeletal Musculoskeletal: gait normal, strength equal bilaterally - Psychiatric Psychiatric: appropriate mood/affect, intact judgment & insight - Neurologic Neurologic: CNII-XII intact, moves all extremities Plan Follow up with: PRIMARY CARE, [Primary Care Provider] - 3-5 Days Prescriptions: Simvastatin [Zocor TAB] 20 mg PO QHS #30 tablet Albuterol Sulfate [Ventolin HFA] 2 puff IH Q4H PRN #1 hfa.aer.ad PRN Reason: Shortness Of Breath Aspirin [Aspirin TAB] 325 mg PO QDAY #30 tablet Azithromycin [Zithromax TAB] 250 mg PO QDAY #4 tablet Carvedilol [Coreg] 3.125 mg PO BID #60 tablet Clopidogrel [Plavix] 75 mg PO QDAY #30 tablet Prednisone [predniSONE 5 mg (6-Day Pack, 21 Tabs)] 5 mg PO .TAPER #1 tab.ds.pk
[2017-01-09] MEDS: HEPARIN SUB-Q SCH (10:00)
[2017-01-09] MEDS ORDERED: ZITHROMAX PO SCH (10:00)
[2017-01-09] MEDS: ROCEPHIN/NS 1 GM/50 ML 1 GM/50 ML BAG IV SCH (11:33)
[2017-01-09] MEDS: PLAVIX PO SCH (11:33)
[2017-01-09] MEDS: NITRO-BID 2% TP SCH ×2 (11:34→11:53)
[2017-01-09] MEDS: ASPIRIN PO SCH (11:34)
[2017-01-09] MEDS: COREG PO SCH (11:36)
[2017-01-09] MEDS: ZOLOFT PO SCH (11:37)
[2017-01-09 11:54] VITALS: BP 133/62
[2017-01-09] MEDS: ZESTRIL PO SCH (12:00)
== END 2017-01-09 15:06 | disposition home or self-care (01) | DRG 191 ==
LOC: ED 13:36 → 4A 01-08 03:34
PROVIDERS: ADMIT Internal Medicine; ATTEND Internal Medicine
PROC: 3E0234Z Introduction of Serum, Toxoid and Vaccine into Muscle, Percutaneous Approach (ICD-10-PCS; principal; 2017-01-09)
DX: J44.1 Chronic obstructive pulmonary disease with (acute) exacerbation (principal); I42.9 Cardiomyopathy, unspecified; Z23 Encounter for immunization; Z88.6 Allergy status to analgesic agent; I25.2 Old myocardial infarction; Z87.891 Personal history of nicotine dependence; I10 Essential (primary) hypertension; I25.10 Atherosclerotic heart disease of native coronary artery without angina pectoris; Z98.51 Tubal ligation status; Z79.82 Long term (current) use of aspirin; E78.5 Hyperlipidemia, unspecified; F41.9 Anxiety disorder, unspecified
CPT/HCPCS: 36415; 71020; 78452; 80048; 84484; 85025; 85610; 85730; 90686; 93005; 93010; 93017; 94640; 96374; 96375; A9502; J0696; J1644; J2270; J2405; J2785; J2930; J3475

== ENCOUNTER 2017-01-16 00:03 | Emergency (ER) | payer SELFPAY | END 2017-01-16 01:30 | disposition left against medical advice (07) | LOC: ED 00:03 | DX: R07.89 Other chest pain (principal); Z53.21 Procedure and treatment not carried out due to patient leaving prior to being seen by health care provider ==

== ENCOUNTER 2018-04-28 07:11 | Outpatient (CLI) | payer OTHER ==
--- NOTE | 2018-04-28 08:27 | Mammography Report ---
BILATERAL MAMMOGRAM: FINDINGS: The breasts are almost entirely fat (<25% glandular). No mass, distortion, suspicious calcification, or skin change is seen. CAD was utilized. IMPRESSION: Negative mammogram. There is no mammographic evidence of malignancy. RECOMMENDATION: Follow-up per ACS guidelines. BI-RADS CATEGORY: 1 = Negative ACR BI-RADS MAMMOGRAPHIC CODES: 0 = Needs additional imaging evaluation; 1 = Negative; 2 = Benign; 3 = Probably benign; 4 = Suspicious; 5 = Malignant; 6 = Known biopsy-proven malignancy COMMENT: 1. Dense breast tissue, i.e., adenosis, fibrocystic changes, etc., may obscure an underlying neoplasm. 2. Approximately 10% of cancers are not detected with mammography. 3. A negative mammography report should not delay biopsy if a clinically suspicious mass is present. COMMENT: Patient follow-up letters are generated in [employer].
== END 2018-04-28 07:12 | disposition home or self-care (01) ==
LOC: MAMMO 07:11
PROVIDERS: ATTEND Nurse Practitioner Gerontology
DX: Z12.31 Encounter for screening mammogram for malignant neoplasm of breast (principal); E78.5 Hyperlipidemia, unspecified; I10 Essential (primary) hypertension; E78.00 Pure hypercholesterolemia, unspecified; Z87.891 Personal history of nicotine dependence
CPT/HCPCS: 77067